=== PATIENT | male | born 1945 | race Caucasian/White ===

== ENCOUNTER 2017-04-08 10:33 | Day surgery (SDC) | payer OTHER, BC ==
[~2017-04-08] VITALS: Ht 177.8 cm; Wt 73.0 kg
[~2017-04-08 10:33] MED LIST: AMIODARONE HCL200 MG PO; AMLODIPINE BESYL5 MG PO; ASPIR 8181 M1 PO; AZELASTINE137 MCG/0. BOTH NARES; B COMPLETE1 EACH PO; BENADRYL25 MG PO; CARDIZEM60 MG PO; DAILY VITE1 EAC1 PO; ERGOCALCIF50000 UNIT PO; FUROSEMIDE80 MG PO; LO-DOSE ASPIRIN81 M1 PO; METOPROLOL TART25 MG PO; PRAVASTATIN SOD40 MG PO; RENVELA800 MG PO; WARFARIN SODIUM4 MG PO
== END 2017-04-08 13:25 | disposition home or self-care (01) ==
LOC: CATH 10:33
DX: T82.858A Stenosis of other vascular prosthetic devices, implants and grafts, initial encounter (principal); Y83.2 Surgical operation with anastomosis, bypass or graft as the cause of abnormal reaction of the patient, or of later complication, without mention of misadventure at the time of the procedure; I12.0 Hypertensive chronic kidney disease with stage 5 chronic kidney disease or end stage renal disease; N18.6 End stage renal disease; Z99.2 Dependence on renal dialysis; Z86.73 Personal history of transient ischemic attack (TIA), and cerebral infarction without residual deficits; F17.200 Nicotine dependence, unspecified, uncomplicated
CPT/HCPCS: C1725; C1769; C1894; J1644; J2250; J3010

== ENCOUNTER 2018-05-22 06:40 | Day surgery (SDC) | payer OTHER, BC ==
[~2018-05-22] VITALS: Ht 177.8 cm; Wt 73.0 kg
== END 2018-05-22 09:46 | disposition home or self-care (01) ==
LOC: CATH 06:40
DX: T82.858A Stenosis of other vascular prosthetic devices, implants and grafts, initial encounter (principal); Y83.2 Surgical operation with anastomosis, bypass or graft as the cause of abnormal reaction of the patient, or of later complication, without mention of misadventure at the time of the procedure; I12.0 Hypertensive chronic kidney disease with stage 5 chronic kidney disease or end stage renal disease; N18.6 End stage renal disease; Z99.2 Dependence on renal dialysis; Z87.891 Personal history of nicotine dependence; E78.00 Pure hypercholesterolemia, unspecified; Z79.02 Long term (current) use of antithrombotics/antiplatelets
CPT/HCPCS: 87641; C1725; C1769; C1894; J1644; J2250; J3010